=== PATIENT | male | born 1955 | race American Indian/Alaskan Native ===

== ENCOUNTER 2019-05-18 06:59 | Outpatient (CLI) | payer OTHER ==
--- NOTE | 2019-05-18 10:09 | Cat Scan Report ---
PROCEDURE: CT ABDOMEN PELVIS WO CON TECHNIQUE: Computerized axial tomography of the abdomen and pelvis was performed without intravenous contrast. This study is performed without intravascular contrast material and its sensitivity for abd ominal and pelvic pathology, including neoplasms, inflammation, abscess, free fluid, thrombosis, jakob rial dissection and infarction, is reduced compared with a contrast enhanced study. CT DOSE LENGTH PRODUCT: 2715.7 mGy-cm. HISTORY: C61 PROSTATE CANCER COMPARISONS: None currently available. FINDINGS: Abdomen: Lung bases and images of the heart are grossly unremarkable. Liver, gallbladder, stomach, spleen, pancreas, adrenals and kidneys are unremarkable. No hydronephros is. No nephroureteral stones. No aneurysm. [id number] atherosclerotic disease. IVC is unremarkable. There is no periaortic or retroperitoneal adenopathy or mass. [id number] stool. No wall thickening or inflammatory changes. Terminal ileum is unremarkable. Appendix is normal. Small bowel loops are unremarkable. No obstructive pattern. No air-fluid levels. No free air. No free fluid. Mesentery is unremarkable. Pelvis: Enlarged heterogeneous prostate. Bladder: Contracted and not well evaluated. No stone. There is no pelvic mass or adenopathy. Inguinal regions are unremarkable. Bones: No suspicious osseous lesions on this limited examination of the skeleton. Metastatic disease better evaluated with bone scan. Degenerative changes are in the spine and hips. Bilateral sacroiliitis. Right SI joint ankylosis noted. IMPRESSION: * Large heterogeneous prostate. * No acute findings. This document is electronically signed by Robinson Florentino MD., May 18 2019 10:07:18 AM ET
--- NOTE | 2019-05-18 13:26 | Nuclear Medicine Report ---
Bone scan: Prostate cancer. Following injection of radionuclide activity whole body images are obtained at approximately 3 hours. There is a normal distribution of radionuclide in the urinary system with a relatively good bone background ratio. Multiple areas of focal uptake are identified involving the articular surfaces of both knees, feet, and hands. No abnormal areas of uptake are identified in the central skeleton. Impression: No suspicion of metastatic disease.
== END 2019-05-18 07:00 | disposition home or self-care (01) ==
LOC: NM 06:59
PROVIDERS: ATTEND Urology
DX: M16.0 Bilateral primary osteoarthritis of hip (principal); M24.651 Ankylosis, right hip; I25.10 Atherosclerotic heart disease of native coronary artery without angina pectoris; C61 Malignant neoplasm of prostate; M47.819 Spondylosis without myelopathy or radiculopathy, site unspecified; M46.1 Sacroiliitis, not elsewhere classified
CPT/HCPCS: 74176; 78306; A9503